=== PATIENT | male | born 1945 | race Two or more races ===

== ENCOUNTER 2020-05-14 14:02 | Outpatient (CLI) | payer OTHER | END 2020-05-14 14:16 | disposition home or self-care (01) | LOC: TOM 14:02 | PROVIDERS: ATTEND Internal Medicine | DX: N20.0 Calculus of kidney (principal); N13.39 Other hydronephrosis; N20.1 Calculus of ureter ==

== ENCOUNTER 2020-05-16 12:50 | Outpatient (CLI) | payer OTHER | END 2020-05-16 12:56 | disposition home or self-care (01) | LOC: RAD 12:50 | PROVIDERS: ATTEND Internal Medicine | DX: N20.0 Calculus of kidney (principal) ==